=== PATIENT | male | born 1970 | race Caucasian/White ===

== ENCOUNTER → 2016-06-20 | Outpatient (CLI) | payer BC | LOC: HYPER 06:56 | DX: T81.89XA Other complications of procedures, not elsewhere classified, initial encounter (principal); E11.621 Type 2 diabetes mellitus with foot ulcer; L97.511 Non-pressure chronic ulcer of other part of right foot limited to breakdown of skin; E11.43 Type 2 diabetes mellitus with diabetic autonomic (poly)neuropathy; E11.69 Type 2 diabetes mellitus with other specified complication; M86.271 Subacute osteomyelitis, right ankle and foot; Y83.8 Other surgical procedures as the cause of abnormal reaction of the patient, or of later complication, without mention of misadventure at the time of the procedure ==

== ENCOUNTER → 2016-09-22 | Outpatient (CLI) | payer BC | LOC: HYPER 09-06 10:27 | DX: T81.89XA Other complications of procedures, not elsewhere classified, initial encounter (principal); E11.621 Type 2 diabetes mellitus with foot ulcer; L97.511 Non-pressure chronic ulcer of other part of right foot limited to breakdown of skin; E11.69 Type 2 diabetes mellitus with other specified complication; M86.271 Subacute osteomyelitis, right ankle and foot; K21.9 Gastro-esophageal reflux disease without esophagitis; E11.40 Type 2 diabetes mellitus with diabetic neuropathy, unspecified; M19.90 Unspecified osteoarthritis, unspecified site; F17.210 Nicotine dependence, cigarettes, uncomplicated; F15.90 Other stimulant use, unspecified, uncomplicated; Z86.718 Personal history of other venous thrombosis and embolism; Z89.412 Acquired absence of left great toe; Z89.411 Acquired absence of right great toe; Y83.8 Other surgical procedures as the cause of abnormal reaction of the patient, or of later complication, without mention of misadventure at the time of the procedure ==

== ENCOUNTER → 2016-12-26 | Outpatient (CLI) | payer BC | LOC: HYPER 12-13 07:11 | DX: T81.89XD Other complications of procedures, not elsewhere classified, subsequent encounter (principal); E11.621 Type 2 diabetes mellitus with foot ulcer; L97.521 Non-pressure chronic ulcer of other part of left foot limited to breakdown of skin; L97.512 Non-pressure chronic ulcer of other part of right foot with fat layer exposed; E11.43 Type 2 diabetes mellitus with diabetic autonomic (poly)neuropathy; E11.69 Type 2 diabetes mellitus with other specified complication; M86.271 Subacute osteomyelitis, right ankle and foot; K21.9 Gastro-esophageal reflux disease without esophagitis; I10 Essential (primary) hypertension; E11.40 Type 2 diabetes mellitus with diabetic neuropathy, unspecified; Z86.718 Personal history of other venous thrombosis and embolism; M19.90 Unspecified osteoarthritis, unspecified site; Z89.412 Acquired absence of left great toe; Z89.411 Acquired absence of right great toe; Z89.421 Acquired absence of other right toe(s); Y83.8 Other surgical procedures as the cause of abnormal reaction of the patient, or of later complication, without mention of misadventure at the time of the procedure ==

== ENCOUNTER → 2017-01-04 | Outpatient (CLI) | payer BC | LOC: HYPER 11:45 | DX: T87.89 Other complications of amputation stump (principal); E11.621 Type 2 diabetes mellitus with foot ulcer; L97.512 Non-pressure chronic ulcer of other part of right foot with fat layer exposed; L97.521 Non-pressure chronic ulcer of other part of left foot limited to breakdown of skin; E11.43 Type 2 diabetes mellitus with diabetic autonomic (poly)neuropathy; E11.69 Type 2 diabetes mellitus with other specified complication; M86.271 Subacute osteomyelitis, right ankle and foot; K21.9 Gastro-esophageal reflux disease without esophagitis; I10 Essential (primary) hypertension; M19.90 Unspecified osteoarthritis, unspecified site; F17.210 Nicotine dependence, cigarettes, uncomplicated; Z89.412 Acquired absence of left great toe; Z86.718 Personal history of other venous thrombosis and embolism; Z89.411 Acquired absence of right great toe; Y83.5 Amputation of limb(s) as the cause of abnormal reaction of the patient, or of later complication, without mention of misadventure at the time of the procedure ==

== ENCOUNTER → 2017-01-11 | Outpatient (CLI) | payer BC | LOC: HYPER 06:51 | DX: T87.89 Other complications of amputation stump (principal); E11.43 Type 2 diabetes mellitus with diabetic autonomic (poly)neuropathy; E11.621 Type 2 diabetes mellitus with foot ulcer; L97.512 Non-pressure chronic ulcer of other part of right foot with fat layer exposed; L97.521 Non-pressure chronic ulcer of other part of left foot limited to breakdown of skin; E11.69 Type 2 diabetes mellitus with other specified complication; M86.271 Subacute osteomyelitis, right ankle and foot; K21.9 Gastro-esophageal reflux disease without esophagitis; I10 Essential (primary) hypertension; M19.90 Unspecified osteoarthritis, unspecified site; F17.210 Nicotine dependence, cigarettes, uncomplicated; Z89.412 Acquired absence of left great toe; Z86.718 Personal history of other venous thrombosis and embolism; Z89.411 Acquired absence of right great toe; Y83.5 Amputation of limb(s) as the cause of abnormal reaction of the patient, or of later complication, without mention of misadventure at the time of the procedure ==

== ENCOUNTER → 2017-01-25 | Outpatient (CLI) | payer BC | LOC: HYPER 06:54 | DX: T81.89XD Other complications of procedures, not elsewhere classified, subsequent encounter (principal); E11.621 Type 2 diabetes mellitus with foot ulcer; L97.512 Non-pressure chronic ulcer of other part of right foot with fat layer exposed; E11.43 Type 2 diabetes mellitus with diabetic autonomic (poly)neuropathy; E11.69 Type 2 diabetes mellitus with other specified complication; M86.271 Subacute osteomyelitis, right ankle and foot; K21.9 Gastro-esophageal reflux disease without esophagitis; E11.40 Type 2 diabetes mellitus with diabetic neuropathy, unspecified; M19.90 Unspecified osteoarthritis, unspecified site; F17.210 Nicotine dependence, cigarettes, uncomplicated; Z86.718 Personal history of other venous thrombosis and embolism; Z89.421 Acquired absence of other right toe(s); Y83.8 Other surgical procedures as the cause of abnormal reaction of the patient, or of later complication, without mention of misadventure at the time of the procedure ==

== ENCOUNTER → 2017-02-01 | Outpatient (CLI) | payer BC | LOC: HYPER 06:42 | DX: T81.89XD Other complications of procedures, not elsewhere classified, subsequent encounter (principal); E11.621 Type 2 diabetes mellitus with foot ulcer; L97.512 Non-pressure chronic ulcer of other part of right foot with fat layer exposed; E11.69 Type 2 diabetes mellitus with other specified complication; M86.271 Subacute osteomyelitis, right ankle and foot; Z89.421 Acquired absence of other right toe(s); E11.43 Type 2 diabetes mellitus with diabetic autonomic (poly)neuropathy; K21.9 Gastro-esophageal reflux disease without esophagitis; I10 Essential (primary) hypertension; E11.40 Type 2 diabetes mellitus with diabetic neuropathy, unspecified; Z86.718 Personal history of other venous thrombosis and embolism; M19.90 Unspecified osteoarthritis, unspecified site; F17.210 Nicotine dependence, cigarettes, uncomplicated; Y83.8 Other surgical procedures as the cause of abnormal reaction of the patient, or of later complication, without mention of misadventure at the time of the procedure ==

== ENCOUNTER → 2017-02-03 | Outpatient (CLI) | payer BC | LOC: HYPER 07:47 | DX: T81.89XD Other complications of procedures, not elsewhere classified, subsequent encounter (principal); E11.621 Type 2 diabetes mellitus with foot ulcer; L97.512 Non-pressure chronic ulcer of other part of right foot with fat layer exposed; E11.69 Type 2 diabetes mellitus with other specified complication; M86.271 Subacute osteomyelitis, right ankle and foot; E11.43 Type 2 diabetes mellitus with diabetic autonomic (poly)neuropathy; K21.9 Gastro-esophageal reflux disease without esophagitis; I10 Essential (primary) hypertension; Z86.718 Personal history of other venous thrombosis and embolism; F17.210 Nicotine dependence, cigarettes, uncomplicated; Y83.8 Other surgical procedures as the cause of abnormal reaction of the patient, or of later complication, without mention of misadventure at the time of the procedure ==

== ENCOUNTER → 2017-02-09 | Outpatient (CLI) | payer BC | LOC: HYPER 07:02 | DX: T81.89XD Other complications of procedures, not elsewhere classified, subsequent encounter (principal); E11.621 Type 2 diabetes mellitus with foot ulcer; L97.512 Non-pressure chronic ulcer of other part of right foot with fat layer exposed; E11.43 Type 2 diabetes mellitus with diabetic autonomic (poly)neuropathy; E11.69 Type 2 diabetes mellitus with other specified complication; M86.271 Subacute osteomyelitis, right ankle and foot; K21.9 Gastro-esophageal reflux disease without esophagitis; E11.40 Type 2 diabetes mellitus with diabetic neuropathy, unspecified; M19.90 Unspecified osteoarthritis, unspecified site; F17.210 Nicotine dependence, cigarettes, uncomplicated; Z86.718 Personal history of other venous thrombosis and embolism; Z89.412 Acquired absence of left great toe; Z89.411 Acquired absence of right great toe; Y83.8 Other surgical procedures as the cause of abnormal reaction of the patient, or of later complication, without mention of misadventure at the time of the procedure ==

== ENCOUNTER → 2017-02-16 | Outpatient (CLI) | payer BC | LOC: HYPER 07:11 | DX: T81.89XD Other complications of procedures, not elsewhere classified, subsequent encounter (principal); E11.621 Type 2 diabetes mellitus with foot ulcer; L97.512 Non-pressure chronic ulcer of other part of right foot with fat layer exposed; E11.69 Type 2 diabetes mellitus with other specified complication; M86.271 Subacute osteomyelitis, right ankle and foot; E11.43 Type 2 diabetes mellitus with diabetic autonomic (poly)neuropathy; K21.9 Gastro-esophageal reflux disease without esophagitis; E11.40 Type 2 diabetes mellitus with diabetic neuropathy, unspecified; M19.90 Unspecified osteoarthritis, unspecified site; F17.210 Nicotine dependence, cigarettes, uncomplicated; Z86.718 Personal history of other venous thrombosis and embolism; Z89.412 Acquired absence of left great toe; Z89.411 Acquired absence of right great toe; Y83.8 Other surgical procedures as the cause of abnormal reaction of the patient, or of later complication, without mention of misadventure at the time of the procedure ==

== ENCOUNTER → 2017-02-22 | Outpatient (CLI) | payer BC | LOC: HYPER 07:00 | DX: T87.89 Other complications of amputation stump (principal); E11.621 Type 2 diabetes mellitus with foot ulcer; L97.512 Non-pressure chronic ulcer of other part of right foot with fat layer exposed; E11.43 Type 2 diabetes mellitus with diabetic autonomic (poly)neuropathy; E11.69 Type 2 diabetes mellitus with other specified complication; M86.271 Subacute osteomyelitis, right ankle and foot; K21.9 Gastro-esophageal reflux disease without esophagitis; I10 Essential (primary) hypertension; M19.90 Unspecified osteoarthritis, unspecified site; F17.210 Nicotine dependence, cigarettes, uncomplicated; Z89.412 Acquired absence of left great toe; Z86.718 Personal history of other venous thrombosis and embolism; Z89.411 Acquired absence of right great toe; Y83.5 Amputation of limb(s) as the cause of abnormal reaction of the patient, or of later complication, without mention of misadventure at the time of the procedure ==

== ENCOUNTER 2017-03-04 13:02 | Emergency (ER) | payer BC ==
[~2017-03-04] VITALS: Ht 203.2 cm; Wt 133.4 kg
--- NOTE | ~2017-03-04 | HC ---
[facility] [address] [place] [address] CONSULTATION Name: LARISA SILVA Room #: DEP Jennifer#: [id number] Admission: 03/04/17 Attend Phys: Discharge: 03/04/17 Date of : 70 Report #: [id number] THIS REPORT FOR: //name// CC: Amy GARCIA DATE OF SERVICE: 03/04/2017 REASON FOR CONSULTATION: Chronic diabetic foot ulcers Chronic diabetic foot ulcers of right foot with increased redness and swelling. DICTATION ENDS HERE <ELECTRONICALLY SIGNED> By: Yvan Willis MD 03/05/17 1935 [id number] Yvan Willis MD /nt
--- NOTE | ~2017-03-04 | HC ---
[facility] [place] [address] CONSULTATION Name: RICARDOLARISA Eric Room #: DEP Jennifer#: [id number] Admission: 03/04/17 Attend Phys: Discharge: 03/04/17 Date of : 70 Report #: [id number] THIS REPORT FOR: //name// CC: Amy GARCIA DATE OF SERVICE: 03/04/2017 EMERGENCY ROOM CONSULTATION NOTE REASON FOR CONSULTATION: Diabetic foot ulcers of right foot with increased swelling, redness and drainage. HISTORY OF PRESENT ILLNESS: The patient is a 46-year-old gentleman suffering with severe diabetic ulcers of the right foot since approximately 03/2016. He is a wound care patient of Dr. Natanael Hankins at [facility]. He has had some toes previously amputated and he has been treated for chronic ulcers of the plantar surface of the foot and the lateral surface of the foot. The wounds have been challenging to treat. Wounds had previously been treated with skin substitutes such as EndoForm and Primatrix. The patient recently had some evidence of infection in the foot and was treated with oral antibiotics. However, the patient felt that the foot was now worse, with increased swelling, increased redness and increased draining. He was concerned. Previous recommendation had been giving to the patient that he undergo a transmetatarsal amputation of the right foot. The patient had had previously toes amputated and there are bony changes on the foot with suspicion of osteomyelitis. The patient now presents himself to the Emergency Room because of increased swelling, increased redness and increased drainage. He has been ambulating on the foot. The patient wants to get antibiotics, but he states that he cannot stay and be hospitalized today. He would want to get antibiotics and be sent home to return on the following day, although it is recommended that he be admitted for continued IV antibiotics. PAST MEDICAL HISTORY: 1. History of diabetic ulcers of the right foot. 2. Previous toe amputations to the right foot. 3. History of pulmonary embolism. 4. Diabetes mellitus type 2 with peripheral neuropathy. SOCIAL HISTORY: Noncontributory. FAMILY HISTORY: Noncontributory. MEDICATIONS: The patient has been taking oral antibiotics. PHYSICAL EXAMINATION: [facility] [address] [place] [address] CONSULTATION Name: LARISA SILVA Room #: DEP [facility]#: [id number] Admission: 03/04/17 Attend Phys: Discharge: 03/04/17 Date of : 70 Report #: [id number] GENERAL: Shows a 46-year-old male who appears slightly ill. HEENT: Mucous membranes are moist. RESPIRATORY: Unlabored. ABDOMEN: Soft. EXTREMITIES: Examination of the extremities shows deformities of the right foot with previous toe amputations. There is a large ulcer of the lateral foot at previous amputation site. The dorsum of the foot is swollen and red to the mid foot. There is some drainage and superficial necrotic tissue on the lateral ulcer of the foot and appears infected. There is also a plantar ulcer of the foot with some drainage that also appears infected. LABORATORY DATA: Laboratories pending. IMPRESSION: Chronic diabetic foot ulcers of the right foot, with suspicion of osteomyelitis and increased evidence of infection with cellulitis. PLAN: I am recommending the patient that he be admitted to the hospital for IV antibiotics. This should be considered for limb salvage as he is at threat for needing bony amputation. Transmetatarsal amputation at least may be needed. It is necessary for the patient to be admitted for IV antibiotics; however, he will not permit this. For this reason, Emergency Room physician will give him a dose of intravenous Zosyn and vancomycin. I am against our advice that the patient will leave the hospital. He promises to call tomorrow to be admitted to the hospital for IV antibiotics, but will not stay today. <ELECTRONICALLY SIGNED> By: Yvan Willis MD 03/05/17 1934 [id number] Yvan Willis MD /nt
[2017-03-04 13:59] LABS: ABSOLUTE NEUTROPHILS 5.7 thou/uL (1.4-8.2); BASOPHILS 0.7 % (0.0-2.0); HEMATOCRIT 42.1 % (42.0-52.0); HEMOGLOBIN 14.3 gm/dL (14.0-18.0); LYMPHOCYTES 10.7 % (24.0-44.0); MCHC 33.9 g/dL (28.0-37.0); MCV 82.5 fL (80.0-100.0); MONOCYTES 8.2 % (1.0-8.0); PLATELET COUNT 288 thou/uL (150-400); POLYS 79.4 % (36.0-66.0); RBC 5.11 mil/uL (4.50-6.00); RDW 15.1 % (10.5-14.5); WBC 7.1 thou/uL (4.0-11.0)
[2017-03-04 14:02] LABS: MANUAL DIFF NO
[2017-03-04 14:08] LABS: CALCIUM 9.3 mg/dL (8.5-10.1); POTASSIUM 4.2 mmol/L (3.5-5.1)
[2017-03-04 14:14] LABS: ALBUMIN 3.3 g/dL (3.4-5.0); TOTAL BILIRUBIN 0.7 mg/dL (<0.1-1.0)
[2017-03-04] MEDS ORDERED: PENICILLIN V P500 MG PO (14:37)
[2017-03-04] MEDS ORDERED: PIOGLITAZONE15 MG (14:38)
[2017-03-04] MEDS ORDERED: JANUVIA100 MG PO (14:38)
[2017-03-04] MEDS ORDERED: XARELTO20 MG PO (14:38)
[2017-03-04] MEDS ORDERED: SILDENAFIL20 MG PO (14:38)
[2017-03-04] MEDS ORDERED: ATORVASTATIN CA40 MG PO (14:38)
[2017-03-04] MEDS ORDERED: OMEPRAZOLE 20 M20 M1 PO (14:39)
[2017-03-04 15:10] LABS: URINE BILIRUBIN NEGATIVE (Negative); URINE BLOOD NEGATIVE (Negative); URINE COLOR YELLOW; URINE GLUCOSE-RANDOM* 3+ (Negative); URINE KETONES TRACE (Negative); URINE NITRITE NEGATIVE (Negative); URINE PROTEIN (DIPSTICK) NEGATIVE (Negative); URINE SPECIFIC GRAVITY <= 1.005 (1.003-1.035); URINE UROBILINOGEN 0.2 E.U./dl (0.2-1.0)
[2017-03-04 18:06] VITALS: BP 101/43
== END 2017-03-04 18:10 | disposition left against medical advice (07) ==
LOC: ER 13:02
PROVIDERS: Emergency Medicine
DX: L08.89 Other specified local infections of the skin and subcutaneous tissue (principal); E11.9 Type 2 diabetes mellitus without complications; E11.40 Type 2 diabetes mellitus with diabetic neuropathy, unspecified; Z86.718 Personal history of other venous thrombosis and embolism; Z88.5 Allergy status to narcotic agent

== ENCOUNTER 2017-03-05 11:00 | Inpatient (IN) | payer BC ==
[~2017-03-05] VITALS: Ht 203.2 cm; Wt 133.5 kg
--- NOTE | ~2017-03-05 | HC ---
[facility] [place] [address] CONSULTATION Name: RICARDOLARISA Eric Room #: 431-P [facility] IN M.R.#: [id number] Admission: 03/05/17 Attend Phys: Riley Castillo MD Discharge: 03/06/17 Date of : 70 Report #: [id number] THIS REPORT FOR: //name// CC: Riley GARCIA DATE OF SERVICE: 03/05/2017 REASON FOR CONSULTATION: Diabetic foot infection of right foot, worsening. HISTORY OF PRESENT ILLNESS: The patient is a 46-year-old gentleman with a history of diabetes mellitus type 2 and diabetic ulcer of the right foot, well known to Dr. Natanael Hankins at [facility] since approximately 03/2016. This patient has diabetic neuropathy. He has a history of deep vein thrombosis and pulmonary embolism and is on Xarelto. He has had previous amputation of a part of the left great toe and the left second and third toe. He has had previous amputation of the right great toe and ray amputation of right fifth toe. He has been seeing Dr. Hankins at [facility] for nonhealing diabetic ulcers of the foot. The patient did call this weekend stating the foot was more red and more swollen with increased malodorous drainage. He presented himself to the Emergency Room yesterday and would not allow himself to be admitted, but got an intravenous dose of vancomycin and Zosyn. He agreed to represent to the hospital today for admission. The patient has been informed that his diabetic foot ulcers could eventually lead to the need for a below-knee amputation or transmetatarsal amputation. The patient is hoping for a transmetatarsal amputation at the most. Recognizing his foot is more red and swollen with increased drainage and foul odor he had himself admitted back to the hospital today. He has been afebrile. Of note in the [facility], his ulcers have chronically failed to heal with the application of skin substitute such as Primatrix. There is suspicion of possible osteomyelitis. PAST MEDICAL HISTORY: 1. Longstanding diabetes mellitus, poorly controlled. Recent hemoglobin A1c 12.4. 2. Hypertension. 3. History of multiple deep vein thrombosis on the right and left. 4. History of pulmonary embolism 2015. 5. History of 3 toe amputations on the left side, right foot fifth toe ray amputation, and great toe amputation. 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 No drug or alcohol abuse. FAMILY HISTORY: [place] [address] CONSULTATION Name: LARISA SILVA Room #: 431-P [facility] IN M.R.#: [id number] Admission: 03/05/17 Attend Phys: Riley Castillo MD Discharge: 03/06/17 Date of : 70 Report #: [id number] MEDICATIONS: Include Xarelto, omeprazole, Acticoat, and sitagliptin. The patient recently been on oral antibiotics for the foot. REVIEW OF SYSTEMS: Noncontributory. PHYSICAL EXAMINATION: GENERAL: Shows a chronically ill-appearing 46-year-old gentleman. VITAL SIGNS: He is afebrile, temperature is 36.8, and he is alert and oriented. LUNGS: Respirations are unlabored. ABDOMEN: Obese. EXTREMITIES: Shows partial amputation of the left great toe, and amputation of the second and third toes. Examination of the right foot shows the previous amputation of the right great toe and open ray amputation of the right fifth toe. There is some swelling on the dorsum of the foot and some erythema to the mid foot. There is a foul odor coming from the open wounds. There is a large open ulcer on the lateral foot at the site of the fifth toe ray amputation site with open wound measuring approximately 4.5 x 3 cm with adherent foul smelling exudate at the base and some drainage. On the plantar aspect of the foot, near the second metatarsal head, there is an ulcer with some foul drainage. Cultures were taken yesterday. LABORATORY DATA: White blood count 7.2, hemoglobin 15.3, hematocrit 44.7, creatinine 1.1. On 03/04/2017 x-ray of the right foot shows ill-definition of the cortex of bone at the base of the proximal phalanx of the fourth toe on the right. This could represent possible osteomyelitis. X-ray notes surgical amputation of the fourth and fifth metatarsals. MRI was recommended. IMPRESSION: Chronic non-healing diabetic ulcers of the right foot with open wound of the right foot, status post right fifth toe ray amputation. Signs and symptoms of infection with swelling, redness, foul drainage, culture is pending. PLAN: IV antibiotics, we will switch to full-strength Dakin's dressings to the foot, MRI is ordered. Check wound cultures and consult ID. The patient will be seen by his orthopedic surgeon. Knows that a transmetatarsal amputation may be a possibility and our goal is limb salvage. Dr. Hankins will see him tomorrow. By: 2020 014 Yvan Willis MD /nt
--- NOTE | ~2017-03-05 | H ---
[facility] [place] [address] HISTORY AND PHYSICAL Name: LARISA SILVA Room #: 170-3 ADM IN M.R.#: [id number] Admission: 03/05/17 Attend Phys: Riley Castillo MD Discharge: Date of : 70 Report #: [id number] THIS REPORT FOR: //name// CC: Riley GARCIA DATE OF SERVICE: 03/05/2017 DATE OF SERVICE: 03/05/2017 REASON FOR ADMISSION: Diabetic right foot. REASON FOR PRESENTATION: Ulcer. HISTORY OF PRESENT ILLNESS: A 46-year-old with past medical history of diabetes mellitus, hypertension. Unfortunately his diabetes has been out of control with the most recent hemoglobin A1c of 12.4. He had been followed by wound care team. He suffered from diabetic foot for the last couple of years and ended up with an amputation in February 2016 of the lateral 2 digits. He called his wound care because of increasing drainage, redness in the right foot. They advised him to come to the emergency room. He came yesterday and had some antibiotic and decided to leave for work-related issues. He came back for further evaluation and management. He denies any fever or chills. He is known to have diabetes mellitus, hypertension, pulmonary embolism. He has required some amputations in the past. No inciting trauma. PAST MEDICAL HISTORY: 1. Diabetes mellitus, longstanding with poor control. 2. Hypertension. 3. Multiple DVTs, one on the left side in 1999, one on the right side in 2004. 4. Pulmonary embolism in 2016. 5. Diabetic foot. 6. Amputations of 2 toes on the left side. 7. Right foot sole ulcer. 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 No drug or alcohol abuse. FAMILY HISTORY: Significant for the following: Mom has hypertension and dad was with renal cancer. MEDICATIONS: 1. Sitagliptin. 2. Xarelto. 3. Omeprazole. 4. Actos. [address] [address] HISTORY AND PHYSICAL Name: LARISA SILVA Room #: 170-3 ADM IN [facility]#: [id number] Admission: 03/05/17 Attend Phys: Riley Castillo MD Discharge: Date of : 70 Report #: [id number] ALLERGIES: CODEINE. REVIEW OF SYSTEMS: CONSTITUTIONAL: No fever or chills. PULMONARY: No cough or hemoptysis. GASTROINTESTINAL: No nausea or vomiting. CARDIOVASCULAR: No chest pain or palpitation. GENITOURINARY: No frequency, no urgency. MUSCULOSKELETAL: As per the history of present illness. SKIN: As per the history of present illness. NEUROLOGIC: No weakness, no loss of consciousness. PHYSICAL EXAMINATION: GENERAL: He is alert, oriented, in no apparent distress. VITAL SIGNS: Pulse rate 99, blood pressure 150/100. Temperature 36.8, respiratory rate 18. GENERAL: Alert, oriented, in no apparent distress. HEAD AND NECK: No jugular venous distention, no bruit, no thyromegaly. CHEST: Clear to auscultation bilaterally. CARDIOVASCULAR: Regular with no rub detected. ABDOMEN: Soft, nontender with no hepatosplenomegaly. EXTREMITIES: Missing digits on the right side with partial amputation of the lateral aspect of the right foot. This is associated with erythema of the dorsum of the foot. There is foul smelling drainage. There is an ulcer on the plantar aspect of the forefoot. LABORATORY VALUES: Reviewed. White blood cell count 7.2. Chemistry revealed hyponatremia with a sodium of 131. Blood sugar is elevated at 378. Urine was trace ketones and +3 glucose. RADIOLOGIC IMAGING: X-ray of the foot revealed an ill-defined cortex of the bone at the base of the proximal phalanx the 4th toe, which could represent osteomyelitis. ASSESSMENT, IMPRESSION AND PLAN: 1. Right diabetic foot wound cellulitis. 2. Concerning osteomyelitis. 3. Diabetes mellitus. 4. Hypertension. 5. Noncompliance. 6. Admission. 7. MRI of the right foot. 8. Wound care. 9. Initiate antibiotic. 10. Blood pressure control. [address] [address] HISTORY AND PHYSICAL Name: LARISA SILVA Room #: 170-3 ADM IN M.R.#: [id number] Admission: 03/05/17 Attend Phys: Riley Castillo MD Discharge: Date of : 70 Report #: [id number] 11. Blood sugar control. 12. If MRI shows evidence of osteomyelitis, we will have Orthopedic involved in his care. By: [id number] [id number] Riley Castillo MD /nt
[2017-03-05 11:00] VITALS: BP 151/101
[~2017-03-05 11:00] MED LIST: ATORVASTATIN CA40 MG PO; JANUVIA100 MG PO; OMEPRAZOLE 20 M20 M1 PO; PENICILLIN V P500 MG PO; PIOGLITAZONE15 MG; SILDENAFIL20 MG PO; XARELTO20 MG PO
[2017-03-05 11:50] LABS: ABSOLUTE NEUTROPHILS 4.8 thou/uL (1.4-8.2); BASOPHILS 0.7 % (0.0-2.0); EOSINOPHILS 1.9 % (0.0-3.0); HEMATOCRIT 44.7 % (42.0-52.0); HEMOGLOBIN 15.3 gm/dL (14.0-18.0); LYMPHOCYTES 18.4 % (24.0-44.0); MANUAL DIFF NO; MCH 28.1 pg (26.0-34.0); MCHC 34.2 g/dL (28.0-37.0); MCV 82.1 fL (80.0-100.0); PLATELET COUNT 315 thou/uL (150-400); RBC 5.45 mil/uL (4.50-6.00); RDW 15.3 % (10.5-14.5); WBC 7.2 thou/uL (4.0-11.0)
[2017-03-05 11:53] LABS: CALCIUM 9.7 mg/dL (8.5-10.1); CREATININE 1.1 mg/dL (0.7-1.3); POTASSIUM 4.3 mmol/L (3.5-5.1)
[2017-03-05 13:27] VITALS: BP 139/87
[2017-03-05 14:16] VITALS: BP 139/87
[2017-03-05 14:40] VITALS: BP 136/72
[2017-03-05 20:00] VITALS: BP 139/75
[2017-03-06 05:30] VITALS: BP 128/74
[2017-03-06 08:00] VITALS: BP 129/79
== END 2017-03-06 10:55 | disposition left against medical advice (07) | DRG 638 ==
LOC: ER 11:00 → 4E 12:03 → EROBS 12:03 → 4E 14:13
PROVIDERS: Emergency Medicine
DX: E11.621 Type 2 diabetes mellitus with foot ulcer (principal); L03.115 Cellulitis of right lower limb; M86.8X7 Other osteomyelitis, ankle and foot; E11.69 Type 2 diabetes mellitus with other specified complication; F17.210 Nicotine dependence, cigarettes, uncomplicated; E11.65 Type 2 diabetes mellitus with hyperglycemia; I10 Essential (primary) hypertension; L97.519 Non-pressure chronic ulcer of other part of right foot with unspecified severity; E11.51 Type 2 diabetes mellitus with diabetic peripheral angiopathy without gangrene; Z53.21 Procedure and treatment not carried out due to patient leaving prior to being seen by health care provider; Z86.718 Personal history of other venous thrombosis and embolism; Z86.711 Personal history of pulmonary embolism; Z88.6 Allergy status to analgesic agent; Z79.899 Other long term (current) drug therapy; Z79.01 Long term (current) use of anticoagulants; Z89.412 Acquired absence of left great toe; Z89.411 Acquired absence of right great toe; Z82.49 Family history of ischemic heart disease and other diseases of the circulatory system; Z91.19 Patient's noncompliance with other medical treatment and regimen
CPT/HCPCS: 10783

== ENCOUNTER → 2017-04-18 | Outpatient (CLI) | payer BC | LOC: HYPER 03-08 15:38 | DX: T81.89XD Other complications of procedures, not elsewhere classified, subsequent encounter (principal); E11.621 Type 2 diabetes mellitus with foot ulcer; L97.512 Non-pressure chronic ulcer of other part of right foot with fat layer exposed; E11.43 Type 2 diabetes mellitus with diabetic autonomic (poly)neuropathy; E11.69 Type 2 diabetes mellitus with other specified complication; M86.271 Subacute osteomyelitis, right ankle and foot; I10 Essential (primary) hypertension; M19.90 Unspecified osteoarthritis, unspecified site; K21.9 Gastro-esophageal reflux disease without esophagitis; F17.210 Nicotine dependence, cigarettes, uncomplicated; Z89.412 Acquired absence of left great toe; Z86.718 Personal history of other venous thrombosis and embolism; Z89.411 Acquired absence of right great toe; Z89.421 Acquired absence of other right toe(s); Y83.8 Other surgical procedures as the cause of abnormal reaction of the patient, or of later complication, without mention of misadventure at the time of the procedure ==

== ENCOUNTER → 2017-05-11 | Outpatient (CLI) | payer BC | LOC: HYPER 06:26 | DX: T81.89XD Other complications of procedures, not elsewhere classified, subsequent encounter (principal); E11.621 Type 2 diabetes mellitus with foot ulcer; L97.512 Non-pressure chronic ulcer of other part of right foot with fat layer exposed; E11.43 Type 2 diabetes mellitus with diabetic autonomic (poly)neuropathy; E11.69 Type 2 diabetes mellitus with other specified complication; M86.271 Subacute osteomyelitis, right ankle and foot; I10 Essential (primary) hypertension; L84 Corns and callosities; M19.90 Unspecified osteoarthritis, unspecified site; K21.9 Gastro-esophageal reflux disease without esophagitis; F17.210 Nicotine dependence, cigarettes, uncomplicated; Z89.421 Acquired absence of other right toe(s); Z86.718 Personal history of other venous thrombosis and embolism; Z89.412 Acquired absence of left great toe; Z89.411 Acquired absence of right great toe; Y83.8 Other surgical procedures as the cause of abnormal reaction of the patient, or of later complication, without mention of misadventure at the time of the procedure ==

== ENCOUNTER → 2017-06-05 | Outpatient (CLI) | payer BC | LOC: HYPER 05-25 06:44 | DX: T87.89 Other complications of amputation stump (principal); L89.893 Pressure ulcer of other site, stage 3; E11.621 Type 2 diabetes mellitus with foot ulcer; L97.512 Non-pressure chronic ulcer of other part of right foot with fat layer exposed; E11.43 Type 2 diabetes mellitus with diabetic autonomic (poly)neuropathy; E11.69 Type 2 diabetes mellitus with other specified complication; M86.271 Subacute osteomyelitis, right ankle and foot; K21.9 Gastro-esophageal reflux disease without esophagitis; I10 Essential (primary) hypertension; E11.40 Type 2 diabetes mellitus with diabetic neuropathy, unspecified; M19.90 Unspecified osteoarthritis, unspecified site; F17.210 Nicotine dependence, cigarettes, uncomplicated; Z89.411 Acquired absence of right great toe; Z89.412 Acquired absence of left great toe; Z86.718 Personal history of other venous thrombosis and embolism; Y83.5 Amputation of limb(s) as the cause of abnormal reaction of the patient, or of later complication, without mention of misadventure at the time of the procedure ==

== ENCOUNTER → 2017-06-19 | Outpatient (CLI) | payer BC | LOC: HYPER 06-13 09:41 | DX: T81.89XD Other complications of procedures, not elsewhere classified, subsequent encounter (principal); E11.621 Type 2 diabetes mellitus with foot ulcer; L97.512 Non-pressure chronic ulcer of other part of right foot with fat layer exposed; L89.893 Pressure ulcer of other site, stage 3; E11.69 Type 2 diabetes mellitus with other specified complication; M86.271 Subacute osteomyelitis, right ankle and foot; E11.43 Type 2 diabetes mellitus with diabetic autonomic (poly)neuropathy; K21.9 Gastro-esophageal reflux disease without esophagitis; L84 Corns and callosities; I10 Essential (primary) hypertension; M19.90 Unspecified osteoarthritis, unspecified site; F17.210 Nicotine dependence, cigarettes, uncomplicated; Z86.718 Personal history of other venous thrombosis and embolism; Z89.412 Acquired absence of left great toe; Z89.411 Acquired absence of right great toe; Y83.8 Other surgical procedures as the cause of abnormal reaction of the patient, or of later complication, without mention of misadventure at the time of the procedure ==

== ENCOUNTER → 2017-06-26 | Outpatient (CLI) | payer BC | LOC: HYPER 06:49 | DX: T81.89XD Other complications of procedures, not elsewhere classified, subsequent encounter (principal); E11.621 Type 2 diabetes mellitus with foot ulcer; L97.512 Non-pressure chronic ulcer of other part of right foot with fat layer exposed; E11.43 Type 2 diabetes mellitus with diabetic autonomic (poly)neuropathy; E11.51 Type 2 diabetes mellitus with diabetic peripheral angiopathy without gangrene; M86.271 Subacute osteomyelitis, right ankle and foot; K21.9 Gastro-esophageal reflux disease without esophagitis; E11.40 Type 2 diabetes mellitus with diabetic neuropathy, unspecified; M19.90 Unspecified osteoarthritis, unspecified site; F17.210 Nicotine dependence, cigarettes, uncomplicated; Z86.718 Personal history of other venous thrombosis and embolism; Z89.422 Acquired absence of other left toe(s); Z89.421 Acquired absence of other right toe(s); Y83.8 Other surgical procedures as the cause of abnormal reaction of the patient, or of later complication, without mention of misadventure at the time of the procedure ==

== ENCOUNTER → 2017-07-27 | Outpatient (CLI) | payer BC | LOC: HYPER 07-17 06:54 | DX: T81.89XD Other complications of procedures, not elsewhere classified, subsequent encounter (principal); E11.621 Type 2 diabetes mellitus with foot ulcer; L97.512 Non-pressure chronic ulcer of other part of right foot with fat layer exposed; L89.893 Pressure ulcer of other site, stage 3; E11.43 Type 2 diabetes mellitus with diabetic autonomic (poly)neuropathy; E11.69 Type 2 diabetes mellitus with other specified complication; M86.271 Subacute osteomyelitis, right ankle and foot; I10 Essential (primary) hypertension; K21.9 Gastro-esophageal reflux disease without esophagitis; M19.90 Unspecified osteoarthritis, unspecified site; F17.210 Nicotine dependence, cigarettes, uncomplicated; Z89.412 Acquired absence of left great toe; Z89.411 Acquired absence of right great toe; Z89.421 Acquired absence of other right toe(s); Y83.8 Other surgical procedures as the cause of abnormal reaction of the patient, or of later complication, without mention of misadventure at the time of the procedure ==

== ENCOUNTER → 2017-08-10 | Outpatient (CLI) | payer BC | LOC: HYPER 07:03 | DX: T81.89XD Other complications of procedures, not elsewhere classified, subsequent encounter (principal); E11.621 Type 2 diabetes mellitus with foot ulcer; L97.512 Non-pressure chronic ulcer of other part of right foot with fat layer exposed; E11.43 Type 2 diabetes mellitus with diabetic autonomic (poly)neuropathy; E11.69 Type 2 diabetes mellitus with other specified complication; M86.271 Subacute osteomyelitis, right ankle and foot; K21.9 Gastro-esophageal reflux disease without esophagitis; E11.40 Type 2 diabetes mellitus with diabetic neuropathy, unspecified; M19.90 Unspecified osteoarthritis, unspecified site; Z86.718 Personal history of other venous thrombosis and embolism; Z89.412 Acquired absence of left great toe; Z89.411 Acquired absence of right great toe; F17.210 Nicotine dependence, cigarettes, uncomplicated; Y83.8 Other surgical procedures as the cause of abnormal reaction of the patient, or of later complication, without mention of misadventure at the time of the procedure ==

== ENCOUNTER → 2017-08-24 | Outpatient (CLI) | payer BC | LOC: HYPER 07:03 | DX: T81.89XD Other complications of procedures, not elsewhere classified, subsequent encounter (principal); E11.621 Type 2 diabetes mellitus with foot ulcer; L97.512 Non-pressure chronic ulcer of other part of right foot with fat layer exposed; E11.43 Type 2 diabetes mellitus with diabetic autonomic (poly)neuropathy; E11.69 Type 2 diabetes mellitus with other specified complication; M86.271 Subacute osteomyelitis, right ankle and foot; K21.9 Gastro-esophageal reflux disease without esophagitis; I10 Essential (primary) hypertension; F17.210 Nicotine dependence, cigarettes, uncomplicated; M19.90 Unspecified osteoarthritis, unspecified site; Z86.718 Personal history of other venous thrombosis and embolism; Z89.412 Acquired absence of left great toe; Z89.411 Acquired absence of right great toe; Y83.8 Other surgical procedures as the cause of abnormal reaction of the patient, or of later complication, without mention of misadventure at the time of the procedure ==

== ENCOUNTER → 2017-09-06 | Outpatient (CLI) | payer BC | LOC: HYPER 07:46 | DX: T81.89XD Other complications of procedures, not elsewhere classified, subsequent encounter (principal); E11.621 Type 2 diabetes mellitus with foot ulcer; L97.512 Non-pressure chronic ulcer of other part of right foot with fat layer exposed; E11.43 Type 2 diabetes mellitus with diabetic autonomic (poly)neuropathy; E11.69 Type 2 diabetes mellitus with other specified complication; M86.271 Subacute osteomyelitis, right ankle and foot; L84 Corns and callosities; I10 Essential (primary) hypertension; K21.9 Gastro-esophageal reflux disease without esophagitis; M19.90 Unspecified osteoarthritis, unspecified site; F17.210 Nicotine dependence, cigarettes, uncomplicated; Z86.718 Personal history of other venous thrombosis and embolism; Y83.8 Other surgical procedures as the cause of abnormal reaction of the patient, or of later complication, without mention of misadventure at the time of the procedure ==

== ENCOUNTER → 2017-09-14 | Outpatient (CLI) | payer BC | LOC: HYPER 06:40 | DX: T81.89XD Other complications of procedures, not elsewhere classified, subsequent encounter (principal); E11.621 Type 2 diabetes mellitus with foot ulcer; L97.512 Non-pressure chronic ulcer of other part of right foot with fat layer exposed; E11.42 Type 2 diabetes mellitus with diabetic polyneuropathy; E11.69 Type 2 diabetes mellitus with other specified complication; M86.271 Subacute osteomyelitis, right ankle and foot; L89.893 Pressure ulcer of other site, stage 3; K21.9 Gastro-esophageal reflux disease without esophagitis; M19.90 Unspecified osteoarthritis, unspecified site; F17.210 Nicotine dependence, cigarettes, uncomplicated; Z86.718 Personal history of other venous thrombosis and embolism; Z89.412 Acquired absence of left great toe; Z89.411 Acquired absence of right great toe; Y83.8 Other surgical procedures as the cause of abnormal reaction of the patient, or of later complication, without mention of misadventure at the time of the procedure ==

== ENCOUNTER → 2017-09-27 | Outpatient (CLI) | payer BC | LOC: HYPER 06:47 | DX: T81.89XD Other complications of procedures, not elsewhere classified, subsequent encounter (principal); E11.621 Type 2 diabetes mellitus with foot ulcer; L97.512 Non-pressure chronic ulcer of other part of right foot with fat layer exposed; L89.893 Pressure ulcer of other site, stage 3; E11.43 Type 2 diabetes mellitus with diabetic autonomic (poly)neuropathy; E11.69 Type 2 diabetes mellitus with other specified complication; M86.271 Subacute osteomyelitis, right ankle and foot; K21.9 Gastro-esophageal reflux disease without esophagitis; F17.210 Nicotine dependence, cigarettes, uncomplicated; M19.90 Unspecified osteoarthritis, unspecified site; Z79.4 Long term (current) use of insulin; Z79.84 Long term (current) use of oral hypoglycemic drugs; Z79.02 Long term (current) use of antithrombotics/antiplatelets; Z86.718 Personal history of other venous thrombosis and embolism; Z89.421 Acquired absence of other right toe(s); Z89.412 Acquired absence of left great toe; Z89.411 Acquired absence of right great toe; Y83.8 Other surgical procedures as the cause of abnormal reaction of the patient, or of later complication, without mention of misadventure at the time of the procedure ==

== ENCOUNTER → 2017-10-11 | Outpatient (CLI) | payer BC | LOC: HYPER 06:40 | DX: T81.89XD Other complications of procedures, not elsewhere classified, subsequent encounter (principal); E11.621 Type 2 diabetes mellitus with foot ulcer; L97.512 Non-pressure chronic ulcer of other part of right foot with fat layer exposed; E11.43 Type 2 diabetes mellitus with diabetic autonomic (poly)neuropathy; E11.69 Type 2 diabetes mellitus with other specified complication; M86.271 Subacute osteomyelitis, right ankle and foot; K21.9 Gastro-esophageal reflux disease without esophagitis; M19.90 Unspecified osteoarthritis, unspecified site; F17.210 Nicotine dependence, cigarettes, uncomplicated; Z79.84 Long term (current) use of oral hypoglycemic drugs; Z79.02 Long term (current) use of antithrombotics/antiplatelets; Z79.4 Long term (current) use of insulin; Z86.718 Personal history of other venous thrombosis and embolism; Z89.412 Acquired absence of left great toe; Z89.411 Acquired absence of right great toe; Y83.8 Other surgical procedures as the cause of abnormal reaction of the patient, or of later complication, without mention of misadventure at the time of the procedure ==

== ENCOUNTER → 2017-10-25 | Outpatient (CLI) | payer BC | LOC: HYPER 10-18 06:58 | DX: T81.89XD Other complications of procedures, not elsewhere classified, subsequent encounter (principal); E11.621 Type 2 diabetes mellitus with foot ulcer; L97.512 Non-pressure chronic ulcer of other part of right foot with fat layer exposed; E11.69 Type 2 diabetes mellitus with other specified complication; M86.271 Subacute osteomyelitis, right ankle and foot; E11.43 Type 2 diabetes mellitus with diabetic autonomic (poly)neuropathy; I10 Essential (primary) hypertension; L84 Corns and callosities; K21.9 Gastro-esophageal reflux disease without esophagitis; M19.90 Unspecified osteoarthritis, unspecified site; F17.210 Nicotine dependence, cigarettes, uncomplicated; Z86.718 Personal history of other venous thrombosis and embolism; Z89.411 Acquired absence of right great toe; Z89.421 Acquired absence of other right toe(s); Z89.412 Acquired absence of left great toe; Z79.4 Long term (current) use of insulin; Z79.02 Long term (current) use of antithrombotics/antiplatelets; Y83.8 Other surgical procedures as the cause of abnormal reaction of the patient, or of later complication, without mention of misadventure at the time of the procedure ==

== ENCOUNTER → 2017-11-24 | Outpatient (CLI) | payer BC | LOC: HYPER 07:31 | DX: T81.4XXD Infection following a procedure, subsequent encounter (principal); T81.89XD Other complications of procedures, not elsewhere classified, subsequent encounter; E11.621 Type 2 diabetes mellitus with foot ulcer; L97.512 Non-pressure chronic ulcer of other part of right foot with fat layer exposed; L89.893 Pressure ulcer of other site, stage 3; E11.43 Type 2 diabetes mellitus with diabetic autonomic (poly)neuropathy; E11.69 Type 2 diabetes mellitus with other specified complication; M86.271 Subacute osteomyelitis, right ankle and foot; I10 Essential (primary) hypertension; L84 Corns and callosities; K21.9 Gastro-esophageal reflux disease without esophagitis; M19.90 Unspecified osteoarthritis, unspecified site; F17.210 Nicotine dependence, cigarettes, uncomplicated; Z89.412 Acquired absence of left great toe; Z79.84 Long term (current) use of oral hypoglycemic drugs; Z79.02 Long term (current) use of antithrombotics/antiplatelets; Z79.4 Long term (current) use of insulin; Z86.718 Personal history of other venous thrombosis and embolism; Z89.411 Acquired absence of right great toe; Z89.421 Acquired absence of other right toe(s); Y83.8 Other surgical procedures as the cause of abnormal reaction of the patient, or of later complication, without mention of misadventure at the time of the procedure ==

== ENCOUNTER → 2017-12-05 | Outpatient (CLI) | payer BC | LOC: HYPER 09:14 | DX: T81.4XXD Infection following a procedure, subsequent encounter (principal); E11.621 Type 2 diabetes mellitus with foot ulcer; L97.512 Non-pressure chronic ulcer of other part of right foot with fat layer exposed; E11.43 Type 2 diabetes mellitus with diabetic autonomic (poly)neuropathy; E11.69 Type 2 diabetes mellitus with other specified complication; M86.271 Subacute osteomyelitis, right ankle and foot; L84 Corns and callosities; K21.9 Gastro-esophageal reflux disease without esophagitis; I10 Essential (primary) hypertension; M19.90 Unspecified osteoarthritis, unspecified site; F17.210 Nicotine dependence, cigarettes, uncomplicated; Z89.412 Acquired absence of left great toe; Z89.411 Acquired absence of right great toe; Z86.718 Personal history of other venous thrombosis and embolism; Z89.421 Acquired absence of other right toe(s); Z79.84 Long term (current) use of oral hypoglycemic drugs; Z79.02 Long term (current) use of antithrombotics/antiplatelets; Z79.4 Long term (current) use of insulin; Y83.8 Other surgical procedures as the cause of abnormal reaction of the patient, or of later complication, without mention of misadventure at the time of the procedure ==

== ENCOUNTER → 2017-12-19 | Outpatient (CLI) | payer BC | LOC: HYPER 07:00 | DX: T81.89XD Other complications of procedures, not elsewhere classified, subsequent encounter (principal); E11.621 Type 2 diabetes mellitus with foot ulcer; L97.512 Non-pressure chronic ulcer of other part of right foot with fat layer exposed; E11.43 Type 2 diabetes mellitus with diabetic autonomic (poly)neuropathy; E11.69 Type 2 diabetes mellitus with other specified complication; M86.271 Subacute osteomyelitis, right ankle and foot; I10 Essential (primary) hypertension; L84 Corns and callosities; M19.90 Unspecified osteoarthritis, unspecified site; K21.9 Gastro-esophageal reflux disease without esophagitis; F17.210 Nicotine dependence, cigarettes, uncomplicated; F41.9 Anxiety disorder, unspecified; Z86.718 Personal history of other venous thrombosis and embolism; Z79.84 Long term (current) use of oral hypoglycemic drugs; Z79.02 Long term (current) use of antithrombotics/antiplatelets; Z79.4 Long term (current) use of insulin; Z89.421 Acquired absence of other right toe(s); Z89.412 Acquired absence of left great toe; Z89.411 Acquired absence of right great toe; Y83.8 Other surgical procedures as the cause of abnormal reaction of the patient, or of later complication, without mention of misadventure at the time of the procedure ==

== ENCOUNTER → 2018-01-04 | Outpatient (CLI) | payer BC | LOC: HYPER 07:13 | DX: E11.621 Type 2 diabetes mellitus with foot ulcer (principal); L97.514 Non-pressure chronic ulcer of other part of right foot with necrosis of bone; L89.893 Pressure ulcer of other site, stage 3; E11.69 Type 2 diabetes mellitus with other specified complication; M86.271 Subacute osteomyelitis, right ankle and foot; E11.43 Type 2 diabetes mellitus with diabetic autonomic (poly)neuropathy; L84 Corns and callosities; K21.9 Gastro-esophageal reflux disease without esophagitis; I10 Essential (primary) hypertension; M19.90 Unspecified osteoarthritis, unspecified site; F41.9 Anxiety disorder, unspecified; F17.200 Nicotine dependence, unspecified, uncomplicated; Z79.84 Long term (current) use of oral hypoglycemic drugs; Z79.4 Long term (current) use of insulin; Z79.02 Long term (current) use of antithrombotics/antiplatelets; Z86.718 Personal history of other venous thrombosis and embolism; Z89.412 Acquired absence of left great toe; Z89.411 Acquired absence of right great toe; Z89.421 Acquired absence of other right toe(s) ==

== ENCOUNTER → 2018-02-13 | Outpatient (CLI) | payer BC | LOC: HYPER 06:58 | DX: T81.89XD Other complications of procedures, not elsewhere classified, subsequent encounter (principal); E11.621 Type 2 diabetes mellitus with foot ulcer; L97.512 Non-pressure chronic ulcer of other part of right foot with fat layer exposed; L89.893 Pressure ulcer of other site, stage 3; L84 Corns and callosities; E11.43 Type 2 diabetes mellitus with diabetic autonomic (poly)neuropathy; E11.69 Type 2 diabetes mellitus with other specified complication; M86.271 Subacute osteomyelitis, right ankle and foot; I10 Essential (primary) hypertension; K21.9 Gastro-esophageal reflux disease without esophagitis; F17.290 Nicotine dependence, other tobacco product, uncomplicated; Z86.718 Personal history of other venous thrombosis and embolism; M19.90 Unspecified osteoarthritis, unspecified site; Z79.84 Long term (current) use of oral hypoglycemic drugs; Z89.411 Acquired absence of right great toe; Z89.412 Acquired absence of left great toe; Z89.421 Acquired absence of other right toe(s); Z79.02 Long term (current) use of antithrombotics/antiplatelets; Z79.4 Long term (current) use of insulin; Y83.8 Other surgical procedures as the cause of abnormal reaction of the patient, or of later complication, without mention of misadventure at the time of the procedure ==

== ENCOUNTER → 2018-02-27 | Outpatient (CLI) | payer BC | LOC: HYPER 06:55 | DX: T81.89XD Other complications of procedures, not elsewhere classified, subsequent encounter (principal); E11.621 Type 2 diabetes mellitus with foot ulcer; L97.516 Non-pressure chronic ulcer of other part of right foot with bone involvement without evidence of necrosis; L84 Corns and callosities; E11.43 Type 2 diabetes mellitus with diabetic autonomic (poly)neuropathy; E11.69 Type 2 diabetes mellitus with other specified complication; M86.271 Subacute osteomyelitis, right ankle and foot; I10 Essential (primary) hypertension; K21.9 Gastro-esophageal reflux disease without esophagitis; M19.90 Unspecified osteoarthritis, unspecified site; F17.290 Nicotine dependence, other tobacco product, uncomplicated; Z86.718 Personal history of other venous thrombosis and embolism; Z79.84 Long term (current) use of oral hypoglycemic drugs; Z89.412 Acquired absence of left great toe; Z89.411 Acquired absence of right great toe; Z89.421 Acquired absence of other right toe(s); Z79.02 Long term (current) use of antithrombotics/antiplatelets; Z79.4 Long term (current) use of insulin; Y83.8 Other surgical procedures as the cause of abnormal reaction of the patient, or of later complication, without mention of misadventure at the time of the procedure ==

== ENCOUNTER → 2018-03-21 | Outpatient (CLI) | payer BC | LOC: HYPER 03-13 15:35 | DX: T81.89XD Other complications of procedures, not elsewhere classified, subsequent encounter (principal); E11.621 Type 2 diabetes mellitus with foot ulcer; L97.516 Non-pressure chronic ulcer of other part of right foot with bone involvement without evidence of necrosis; L84 Corns and callosities; E11.43 Type 2 diabetes mellitus with diabetic autonomic (poly)neuropathy; E11.69 Type 2 diabetes mellitus with other specified complication; M86.271 Subacute osteomyelitis, right ankle and foot; I10 Essential (primary) hypertension; K21.9 Gastro-esophageal reflux disease without esophagitis; M19.90 Unspecified osteoarthritis, unspecified site; F17.290 Nicotine dependence, other tobacco product, uncomplicated; F41.9 Anxiety disorder, unspecified; Z79.84 Long term (current) use of oral hypoglycemic drugs; Z79.02 Long term (current) use of antithrombotics/antiplatelets; Z79.4 Long term (current) use of insulin; Z89.411 Acquired absence of right great toe; Z89.412 Acquired absence of left great toe; Z89.421 Acquired absence of other right toe(s); Z86.718 Personal history of other venous thrombosis and embolism; Y83.8 Other surgical procedures as the cause of abnormal reaction of the patient, or of later complication, without mention of misadventure at the time of the procedure ==

== ENCOUNTER → 2018-04-04 | Outpatient (CLI) | payer BC | LOC: HYPER 06:50 | DX: T81.89XD Other complications of procedures, not elsewhere classified, subsequent encounter (principal); E11.621 Type 2 diabetes mellitus with foot ulcer; L97.516 Non-pressure chronic ulcer of other part of right foot with bone involvement without evidence of necrosis; E11.43 Type 2 diabetes mellitus with diabetic autonomic (poly)neuropathy; E11.69 Type 2 diabetes mellitus with other specified complication; M86.271 Subacute osteomyelitis, right ankle and foot; I10 Essential (primary) hypertension; K21.9 Gastro-esophageal reflux disease without esophagitis; L84 Corns and callosities; M19.90 Unspecified osteoarthritis, unspecified site; F17.290 Nicotine dependence, other tobacco product, uncomplicated; F41.9 Anxiety disorder, unspecified; Z89.439 Acquired absence of unspecified foot; Z86.718 Personal history of other venous thrombosis and embolism; Z79.84 Long term (current) use of oral hypoglycemic drugs; Z79.02 Long term (current) use of antithrombotics/antiplatelets; Z79.4 Long term (current) use of insulin; Y83.8 Other surgical procedures as the cause of abnormal reaction of the patient, or of later complication, without mention of misadventure at the time of the procedure ==

== ENCOUNTER → 2018-06-26 | Outpatient (CLI) | payer BC | LOC: HYPER 05-02 07:00 | DX: T87.89 Other complications of amputation stump (principal); E11.621 Type 2 diabetes mellitus with foot ulcer; L97.511 Non-pressure chronic ulcer of other part of right foot limited to breakdown of skin; L84 Corns and callosities; E11.69 Type 2 diabetes mellitus with other specified complication; M86.8X8 Other osteomyelitis, other site; E11.43 Type 2 diabetes mellitus with diabetic autonomic (poly)neuropathy; I10 Essential (primary) hypertension; K21.9 Gastro-esophageal reflux disease without esophagitis; M19.90 Unspecified osteoarthritis, unspecified site; F17.290 Nicotine dependence, other tobacco product, uncomplicated; F41.9 Anxiety disorder, unspecified; Z86.718 Personal history of other venous thrombosis and embolism; Z79.84 Long term (current) use of oral hypoglycemic drugs; Z79.02 Long term (current) use of antithrombotics/antiplatelets; Z79.4 Long term (current) use of insulin; Y83.5 Amputation of limb(s) as the cause of abnormal reaction of the patient, or of later complication, without mention of misadventure at the time of the procedure ==

== ENCOUNTER → 2018-07-19 | Outpatient (CLI) | payer BC | LOC: HYPER 06:52 | DX: T87.89 Other complications of amputation stump (principal); E11.69 Type 2 diabetes mellitus with other specified complication; M86.8X8 Other osteomyelitis, other site; E11.43 Type 2 diabetes mellitus with diabetic autonomic (poly)neuropathy; L84 Corns and callosities; I10 Essential (primary) hypertension; K21.9 Gastro-esophageal reflux disease without esophagitis; M19.90 Unspecified osteoarthritis, unspecified site; F17.290 Nicotine dependence, other tobacco product, uncomplicated; F41.9 Anxiety disorder, unspecified; Z89.412 Acquired absence of left great toe; Z86.718 Personal history of other venous thrombosis and embolism; Z79.84 Long term (current) use of oral hypoglycemic drugs; Z79.02 Long term (current) use of antithrombotics/antiplatelets; Z79.4 Long term (current) use of insulin; Y83.5 Amputation of limb(s) as the cause of abnormal reaction of the patient, or of later complication, without mention of misadventure at the time of the procedure ==

== ENCOUNTER → 2018-10-08 | Outpatient (CLI) | payer BC | LOC: HYPER 08-30 06:36 | DX: T87.89 Other complications of amputation stump (principal); E11.43 Type 2 diabetes mellitus with diabetic autonomic (poly)neuropathy; E11.69 Type 2 diabetes mellitus with other specified complication; M86.8X8 Other osteomyelitis, other site; I10 Essential (primary) hypertension; K21.9 Gastro-esophageal reflux disease without esophagitis; M19.90 Unspecified osteoarthritis, unspecified site; F41.9 Anxiety disorder, unspecified; F17.290 Nicotine dependence, other tobacco product, uncomplicated; Z89.411 Acquired absence of right great toe; Z89.412 Acquired absence of left great toe; Z89.421 Acquired absence of other right toe(s); Z86.718 Personal history of other venous thrombosis and embolism; Z79.84 Long term (current) use of oral hypoglycemic drugs; Z79.02 Long term (current) use of antithrombotics/antiplatelets; Z79.4 Long term (current) use of insulin; Y83.5 Amputation of limb(s) as the cause of abnormal reaction of the patient, or of later complication, without mention of misadventure at the time of the procedure ==

== ENCOUNTER → 2018-11-06 | Outpatient (CLI) | payer BC | LOC: HYPER 07:03 | DX: T87.89 Other complications of amputation stump (principal); E11.43 Type 2 diabetes mellitus with diabetic autonomic (poly)neuropathy; I10 Essential (primary) hypertension; E11.69 Type 2 diabetes mellitus with other specified complication; M86.8X8 Other osteomyelitis, other site; M19.90 Unspecified osteoarthritis, unspecified site; L84 Corns and callosities; K21.9 Gastro-esophageal reflux disease without esophagitis; F17.290 Nicotine dependence, other tobacco product, uncomplicated; F41.9 Anxiety disorder, unspecified; Z86.718 Personal history of other venous thrombosis and embolism; Z79.84 Long term (current) use of oral hypoglycemic drugs; Z79.02 Long term (current) use of antithrombotics/antiplatelets; Z79.4 Long term (current) use of insulin; Z89.412 Acquired absence of left great toe; Z89.411 Acquired absence of right great toe; Z89.421 Acquired absence of other right toe(s); Y83.5 Amputation of limb(s) as the cause of abnormal reaction of the patient, or of later complication, without mention of misadventure at the time of the procedure ==

== ENCOUNTER → 2018-12-03 | Outpatient (CLI) | payer OTHER | LOC: HYPER 11-20 06:34 | DX: T87.89 Other complications of amputation stump (principal); E11.43 Type 2 diabetes mellitus with diabetic autonomic (poly)neuropathy; E11.69 Type 2 diabetes mellitus with other specified complication; M86.8X8 Other osteomyelitis, other site; I10 Essential (primary) hypertension; L84 Corns and callosities; M19.90 Unspecified osteoarthritis, unspecified site; K21.9 Gastro-esophageal reflux disease without esophagitis; F17.290 Nicotine dependence, other tobacco product, uncomplicated; F41.9 Anxiety disorder, unspecified; Z89.412 Acquired absence of left great toe; Z89.511 Acquired absence of right leg below knee; Z79.84 Long term (current) use of oral hypoglycemic drugs; Z79.02 Long term (current) use of antithrombotics/antiplatelets; Z79.4 Long term (current) use of insulin; Z86.718 Personal history of other venous thrombosis and embolism; Z89.411 Acquired absence of right great toe; Z89.421 Acquired absence of other right toe(s); Y83.5 Amputation of limb(s) as the cause of abnormal reaction of the patient, or of later complication, without mention of misadventure at the time of the procedure ==

== ENCOUNTER → 2020-06-01 | Outpatient (CLI) | payer OTHER | LOC: HYPER 12:53 | PROVIDERS: ATTEND Emergency Medicine | DX: T87.89 Other complications of amputation stump (principal); S81.811A Laceration without foreign body, right lower leg, initial encounter; S80.11XA Contusion of right lower leg, initial encounter; L03.115 Cellulitis of right lower limb; E11.43 Type 2 diabetes mellitus with diabetic autonomic (poly)neuropathy; E11.69 Type 2 diabetes mellitus with other specified complication; M86.8X8 Other osteomyelitis, other site; I10 Essential (primary) hypertension; K21.9 Gastro-esophageal reflux disease without esophagitis; M19.90 Unspecified osteoarthritis, unspecified site; F17.290 Nicotine dependence, other tobacco product, uncomplicated; F41.9 Anxiety disorder, unspecified; Z86.718 Personal history of other venous thrombosis and embolism; Z79.02 Long term (current) use of antithrombotics/antiplatelets; Z79.4 Long term (current) use of insulin; X58.XXXA Exposure to other specified factors, initial encounter; Y93.89 Activity, other specified; Y92.89 Other specified places as the place of occurrence of the external cause; Y99.8 Other external cause status; Y83.5 Amputation of limb(s) as the cause of abnormal reaction of the patient, or of later complication, without mention of misadventure at the time of the procedure ==

== ENCOUNTER → 2020-06-11 | Outpatient (CLI) | payer OTHER | LOC: HYPER 14:03 | PROVIDERS: ATTEND Emergency Medicine | DX: T87.89 Other complications of amputation stump (principal); S81.811D Laceration without foreign body, right lower leg, subsequent encounter; S80.11XD Contusion of right lower leg, subsequent encounter; L03.115 Cellulitis of right lower limb; E11.43 Type 2 diabetes mellitus with diabetic autonomic (poly)neuropathy; E11.69 Type 2 diabetes mellitus with other specified complication; M86.8X8 Other osteomyelitis, other site; I10 Essential (primary) hypertension; K21.9 Gastro-esophageal reflux disease without esophagitis; M19.90 Unspecified osteoarthritis, unspecified site; F17.290 Nicotine dependence, other tobacco product, uncomplicated; F41.9 Anxiety disorder, unspecified; Z86.718 Personal history of other venous thrombosis and embolism; Z79.02 Long term (current) use of antithrombotics/antiplatelets; Z79.4 Long term (current) use of insulin; X58.XXXD Exposure to other specified factors, subsequent encounter; Y83.5 Amputation of limb(s) as the cause of abnormal reaction of the patient, or of later complication, without mention of misadventure at the time of the procedure ==

== ENCOUNTER → 2020-06-25 | Outpatient (CLI) | payer OTHER | LOC: HYPER 10:14 | PROVIDERS: ATTEND Emergency Medicine | DX: T87.89 Other complications of amputation stump (principal); S81.811D Laceration without foreign body, right lower leg, subsequent encounter; S80.11XD Contusion of right lower leg, subsequent encounter; L03.115 Cellulitis of right lower limb; E11.43 Type 2 diabetes mellitus with diabetic autonomic (poly)neuropathy; E11.69 Type 2 diabetes mellitus with other specified complication; M86.8X8 Other osteomyelitis, other site; I10 Essential (primary) hypertension; K21.9 Gastro-esophageal reflux disease without esophagitis; M19.90 Unspecified osteoarthritis, unspecified site; F17.290 Nicotine dependence, other tobacco product, uncomplicated; F41.9 Anxiety disorder, unspecified; Z86.718 Personal history of other venous thrombosis and embolism; Z79.02 Long term (current) use of antithrombotics/antiplatelets; Z79.4 Long term (current) use of insulin; X58.XXXD Exposure to other specified factors, subsequent encounter; Y83.5 Amputation of limb(s) as the cause of abnormal reaction of the patient, or of later complication, without mention of misadventure at the time of the procedure ==

== ENCOUNTER 2021-01-21 17:19 | Emergency (ER) | payer OTHER ==
[~2021-01-21] VITALS: Ht 203.2 cm; Wt 124.3 kg
[2021-01-21] MEDS ORDERED: NEURONTIN 300M300 M2 PO (17:23)
[2021-01-21] MEDS ORDERED: XARELTO10 M1 PO ×2 (17:42→17:54)
[2021-01-21] MEDS ORDERED: BACTRIM DS TAB1 EAC1 PO (17:42)
[2021-01-21 17:43] VITALS: BP 141/97
[2021-01-21] MEDS ORDERED: XARELTO20 MG PO (17:54)
== END 2021-01-21 17:43 | disposition home or self-care (01) ==
LOC: ER 17:19
DX: L03.115 Cellulitis of right lower limb (principal); E11.40 Type 2 diabetes mellitus with diabetic neuropathy, unspecified; F17.210 Nicotine dependence, cigarettes, uncomplicated; Z76.0 Encounter for issue of repeat prescription; Z79.899 Other long term (current) drug therapy; Z88.6 Allergy status to analgesic agent; Z86.711 Personal history of pulmonary embolism; Z86.718 Personal history of other venous thrombosis and embolism

== ENCOUNTER 2021-02-15 09:37 | Emergency (ER) | payer OTHER ==
[~2021-02-15] VITALS: Ht 203.2 cm; Wt 124.3 kg
[~2021-02-15 09:37] MED LIST changes: +BACTRIM DS TAB1 EAC1 PO; +NEURONTIN 300M300 M2 PO; +XARELTO10 M1 PO
[2021-02-15 09:38] VITALS: BP 146/90
[2021-02-15] MEDS ORDERED: DOXYCYCLINE 10100 MG PO (10:05)
== END 2021-02-15 10:06 | disposition home or self-care (01) ==
LOC: ER 09:37
DX: L03.115 Cellulitis of right lower limb (principal); E11.40 Type 2 diabetes mellitus with diabetic neuropathy, unspecified; Z88.5 Allergy status to narcotic agent; Z79.899 Other long term (current) drug therapy

== ENCOUNTER 2021-03-01 12:26 | Emergency (ER) | payer OTHER ==
[~2021-03-01] VITALS: Ht 203.2 cm; Wt 124.3 kg
[~2021-03-01 12:26] MED LIST changes: +DOXYCYCLINE 10100 MG PO
[2021-03-01] MEDS ORDERED: DOXYCYCLINE 10100 MG PO (14:10)
[2021-03-01 14:35] VITALS: BP 143/96
== END 2021-03-01 14:35 | disposition home or self-care (01) ==
LOC: ER 12:26
DX: Z48.01 Encounter for change or removal of surgical wound dressing (principal); E11.40 Type 2 diabetes mellitus with diabetic neuropathy, unspecified; F17.210 Nicotine dependence, cigarettes, uncomplicated; Z86.711 Personal history of pulmonary embolism; Z86.718 Personal history of other venous thrombosis and embolism; Z79.891 Long term (current) use of opiate analgesic; Z79.899 Other long term (current) drug therapy; Z79.1 Long term (current) use of non-steroidal anti-inflammatories (NSAID); Z88.5 Allergy status to narcotic agent

== ENCOUNTER 2021-05-03 14:23 | Emergency (ER) | payer OTHER ==
[~2021-05-03] VITALS: Ht 203.2 cm; Wt 122.9 kg
[2021-05-03 18:36] VITALS: BP 155/97
== END 2021-05-03 18:37 | disposition home or self-care (01) ==
LOC: ER 14:23
DX: I73.9 Peripheral vascular disease, unspecified (principal); L98.8 Other specified disorders of the skin and subcutaneous tissue; E11.40 Type 2 diabetes mellitus with diabetic neuropathy, unspecified; F17.210 Nicotine dependence, cigarettes, uncomplicated; Z86.718 Personal history of other venous thrombosis and embolism; Z79.891 Long term (current) use of opiate analgesic; Z79.899 Other long term (current) drug therapy; Z88.6 Allergy status to analgesic agent

== ENCOUNTER 2021-05-17 15:15 | Inpatient (IN) | payer OTHER ==
[~2021-05-17] VITALS: Ht 203.2 cm; Wt 121.6 kg
[2021-05-17 16:19] VITALS: BP 139/84
[2021-05-17 17:31] LABS: BASOPHILS 1.1 % (0.0-2.0); EOSINOPHILS 0.6 % (0.0-3.0); HEMATOCRIT 45.6 % (42.0-52.0); HEMOGLOBIN 15.2 gm/dL (14.0-18.0); LYMPHOCYTES 22.9 % (24.0-44.0); MCH 27.7 pg (26.0-34.0); MCHC 33.3 g/dL (28.0-37.0); MCV 83.2 fL (80.0-100.0); MONOCYTES 6.8 % (1.0-8.0); PLATELET COUNT 665 thou/uL (150-400); POLYS 68.6 % (36.0-66.0); RBC 5.49 mil/uL (4.50-6.00); RDW 15.2 % (10.5-14.5); WBC 13.1 thou/uL (4.0-11.0)
[2021-05-17 17:37] LABS: CALCIUM 9.4 mg/dL (8.5-10.1); CREATININE 0.9 mg/dL (0.7-1.3); POTASSIUM 4.1 mmol/L (3.5-5.1)
[2021-05-17 17:43] LABS: ALBUMIN 2.9 g/dL (3.4-5.0); TOTAL BILIRUBIN 0.4 mg/dL (0.2-1.0); TOTAL PROTEIN 8.9 g/dL (6.4-8.2)
[2021-05-17 20:13] LABS: APTT 29.5 Seconds (24.5-32.8); INR 0.97; PROTIME 10.6 Seconds (10.5-12.1)
[2021-05-18] VITALS (7 sets, daily range): BP systolic 121–143; BP diastolic 73–89
[2021-05-18 06:35] LABS: HEMATOCRIT 38.7 % (42.0-52.0); HEMOGLOBIN 13.4 gm/dL (14.0-18.0); MCH 28.8 pg (26.0-34.0); MCHC 34.5 g/dL (28.0-37.0); MCV 83.4 fL (80.0-100.0); RBC 4.64 mil/uL (4.50-6.00); RDW 15.3 % (10.5-14.5); WBC 9.2 thou/uL (4.0-11.0)
[2021-05-18 06:46] LABS: CALCIUM 8.9 mg/dL (8.5-10.1); CREATININE 0.8 mg/dL (0.7-1.3); POTASSIUM 4.3 mmol/L (3.5-5.1)
--- NOTE | 2021-05-18 13:42 | NUR ---
PT RECEIVED FROM LISA WOLFE RN, AT THE TIME OF ENTERANCE IN THE PATIENT'S ROOM WAS AT THE BEDSIDE, WHEN INTRODUCED SELF, AT BEDSIDE HAD QUESTIONS REGARDING PLAN OF CARE AND INTERVENTIONS BEING PROVIDED. RN PROVIDED UPDATE BEST POSSIBLE FROM READING PROVIDERS NOTES, STATED THE REASON AND RATIOALE FOR TODAY'S IR PROCEDURE AND CALLED IN ALL NECESSARY CONSULTS. PT WAS TAKEN DOWN TO IR BY STAFF MEMBER WITH AT SIDE. ALL ANTIBIOTICS HUNG AT APPROPERIATE TIME. RN SIGNING OFF
[2021-05-18 16:38] LABS: INR 1.05; PROTIME 11.4 Seconds (10.5-12.1)
[2021-05-18 16:41] LABS: APTT 40.2 Seconds (24.5-32.8)
--- NOTE | 2021-05-18 17:45 | NUR ---
Consult rec'd as pt admited with no insurance pt pay. Referral to [facility] to screen [place] completed. 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 He has insurance coverage starting 05-26-2021. Will follow along should the pt need assistance with medications at pr.
--- NOTE | 2021-05-18 17:52 | NUR ---
tpa started at 25ml/hr in the right groin catheter.
--- NOTE | 2021-05-18 20:52 | NUR ---
Nursing Note Patient very upset at start of shift; calling MD/Staff inappropriate names; asked patient to please refrain from that type of behavior; pt frustrated about being inpatient, wants to leave, refuses care, etc. Long discussion with patient about POC and clinical picture; pt stated he was unaware he had a clot in his artery and that was more serious than a DVT; explained sheath/TPA to patient; listened to concerns; approx 45minutes. 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 Pt stated he was uninsured. RN discussed patient right's; and had a lenghty conversation of possible outcomes including r/t leaving the hospital AMA; pt stated he wanted to see how tomorrow went; but was not happy being inpatient, his care up until being in ICU. Pt relaxed slightly; was appreciative of RN convo. Now resting with HOB less than 10, trendelenberg to eat, discussed keeping right hip/leg straight- pt annoyed but agreeable to continue care for tonight. Will notify attending.- pt also requested minimal interruptions throughout night. Ovidio COOK RN
[2021-05-19] VITALS (10 sets, daily range): BP systolic 116–147; BP diastolic 72–86
--- NOTE | 2021-05-19 01:48 | NUR ---
[email or web address] ISSUE Noted under status board; care activities show they were completed 1 day ago; though just being completed. Under 'view history' assessments/time correct. Ovidio COOK RN
[2021-05-19 07:08] LABS: GLYCOHEMOGLOBIN (HGB A1C) 13.1 % (4.8-5.6)
[2021-05-19 08:34] LABS: HEMATOCRIT 39.3 % (42.0-52.0); HEMOGLOBIN 13.3 gm/dL (14.0-18.0); MCH 28.1 pg (26.0-34.0); MCV 82.6 fL (80.0-100.0); RBC 4.76 mil/uL (4.50-6.00); WBC 10.2 thou/uL (4.0-11.0)
[2021-05-19 09:06] LABS: CALCIUM 8.6 mg/dL (8.5-10.1); CREATININE 0.7 mg/dL (0.7-1.3); MAGNESIUM 1.5 mg/dL (1.8-2.4)
--- NOTE | 2021-05-19 09:09 | NUR ---
Assess due to RD consult received. Admit with PAD, LLE wound, gangrenous with possible need for amputation. Hx DM, poorly controlled (A1C 13.1), Right BKA, HTN, DVT. 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 Has been refusing all cares. Voiced hunger last evening. Wt loss about 6 lb over 2 mo/2% not significant. When diet ready to advance, recommend carb control and will add john bid. Low nutrition risk.
--- NOTE | 2021-05-19 13:54 | NUR ---
PT ASKED ABOUT HAVING A BOWEL MOVEMENT. RN BROUGHT PT A BEDSIDE CAMMODE. PT REFUSED A BED WEATHERS. 2 RN WERE PRESENT TO HELP PT TO BEDSIDE CAMMODE. PT STATED "I AM 50 YEARS OLD, I AM NOT AN ADOLECENT, YOU DO NOT NEED TO TREAT ME LIKE A CHILD. I HAVE DONE WITH FOR 20 YEARS." PT THEN TORE OFF HIS FALL BAND AND SAID THAT HE WAS GOING TO RIP OFF ALL LEADS AND IV. BOTH RN LEFT ROOM PER PT REQUEST. RN TOLD NURSE QUITLINE COUNSELOR AND HOSPITALIST OF EVENT. RN CHECKED ON PT, PT STATED TO TOOKS HIS ECG LEADS, BP CUFF AND O2 SAT AND WAS NOT PUTTING THEM BACK ON. PT STATED HE WAS GETTING DRESSED AND WHEN HIS ARRIVED DECIDING IF HE WS LEAVING OR NOT. RN WILL CONTINUE TO FOLLOW PLAN OF CARE.
--- NOTE | 2021-05-19 14:25 | NUR ---
PT ADMITTED RELATED TO GANGRENE OF LEFT FOOT AND PERIPHERAL ARTERIAL DISEASE. CM RVIEWED CHART AND SPOKE WITH CARE TEAM. PT'S CARE DISCUSSED DURING ICU ROUNDS THIS DAY. PT WAS DOWN IN IR THIS AM. PLAN WAS FOR PT TO HAVE TRANS MET AMP TOMORROW. NURSE INDICATED THAT PT IS REFUSING CARES AND HAD INDICATED HE WANTS TO LEAVE MONDAY AT THE LATEST AND MAY LEAVE AMA. CM MET WITH PT AT BEDSIDE THIS DAY. PT APPEARS TO BE A&O X4. CM ROLE INTRODUCED. PT WAS AGREEABLE TO SPEAKING WITH CM. HE INDICATED THAT HE RESIDES IN A HOUSE IN [place] WITH HIS FIANCE YULI PEDRAZA. HE INDICATED THAT HE HAS A RAMP TO ENTER AND NO STEPS THAT HE NEEDS TO NAVIGATE INSIDE. PT INDICATED HE HAS A MOTORIZED SCOOTER, A KNEE SCOOTER, AND A SHOWER CHAIR FOR HOME USE. 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 HE INDICATED THAT HE WILL HAVE INSURANCE IN 3 WEEKS. 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 PT HAS HX OF R HEIDI. PT INDICATED HE WANTS TO LEAVE TOMORROW FOLLOWING AMP AND WILL REFUSE IV ABX OUTPATIENT INFUSION/HOME INFUSION AND WILL ONLY CONSIDER ORAL ABX OPTIONS. PT ASKED TO SPEAK WITH ADMINISRATION. LOAN WORKOUT OFFICER AWARE. CM FOLLOWING.
--- NOTE | 2021-05-19 18:13 | NUR ---
TRANSFER FROM ICU. FULL CODE. A/O X 4. ROOM AIR. STAND BY-DOESNT WANT HELP TO TRANSFER. REFUSES TELE MONITOR. LEFT FOOT WOUND/NECROTIC. LEFT FOREARM IV WITH HEPARIN INFUSING. RIGHT GROIN DRESSING POST STENT PLACEMENT. NPO AT MIDNIGHT FOR SURGERY TOMORROW. NO PAIN NOTED. AT BEDSIDE.
[2021-05-20 07:25] VITALS: BP 130/81
--- NOTE | 2021-05-20 08:09 | NUR ---
PT ASSESSMENT COMPLETED AND VSS. ATTEMPTED TO GIVE MEDICATION ORDERED. PT REFUSED PLACEMENT OF A SECOND IV TO GIVE ANTIBIOTICS THROUGH. THE ONE IV WAS BEING USED FOR PTS HEPARIN GTT. PT WAS AGITATED AND YELLED AND ASKED THE RN PLANNING TO START THE IV TO LEAVE THE ROOM. CONTACTED ISSA FELICIANO ABOUT PT REFUSING SECOND NECESSARY IV TO KEEP MEDICATIONS ON TRACK. ALSO PT INITIALLY REFUSED TELE FOR DAYSHIFT. THEN AT PT DECIDED TO LET STAFF PUT THE TELE ON. AFTER MUCH EDUCATION AND ENCOURAGEMENT. THEN APPROXIMATELY 1 HOUR LATER PT PULLED TELE OFF WITHOUT ASKING STAFF. INFORMED ISSA FELICIANO. ALSO, PT HAD TO HAVE A BM URGENTLY. [facility] WAS MISSING BUCKET. THIS RN RAN TO FIND A BUCKET. PT TRANSFERED TO [facility] AND BECAUSE OF HIS URGENCY ACCIDENTLY PULLED HIS IV OUT. BECAUSE OF THE HEPARIN DRIP BLOOD WAS EVERYWHERE. APPLIED A PRESSURE DRESSING AND CLEANED PT AND FLOOR UP. INFORMED ISSA FELICIANO. NURSE RYAN WAS ABLE TO PLACE TWO VERY GOOD IVS. HEPARIN D/C AT MIDNIGHT AND PT NPO SINCE MIDNIGHT. WORKED ON GETTING IV MEDICATION COMPLETED. PT SLEEPING. WILL CONTINUE TO MONTITOR FREQUENTLY. PT WAS CURSING AND ANGRY SAYING THAT [facility] WAS NOT A PROFESSIONAL [facility] THAT HE NEVER WANTED TO COME HERE AGAIN. ASKED DAY RN TO THINK ABOUT CONTACTING THE PT ADVOCATE OR NURSE OIL TANKER CAPTAIN REGARDING THIS SITUATION.
--- NOTE | 2021-05-20 10:35 | HC ---
[facility] [place] [address] CONSULTATION Name: LARISA SILVA Room #: 441-P ADM IN M.R.#: [id number] Admission: 05/17/21 Attend Phys: Mars Smith MD Discharge: Date of : 70 Report #: [id number] THIS REPORT FOR: cc: MANNIE - Rehana family physician/PCP MANNIE - No family physician/PCP Michael Bolanos MD ~ DATE OF SERVICE: 05/19/2021 INFECTIOUS DISEASE CONSULTATION ATTENDING PHYSICIAN: Dr. Smith. REASON FOR EVALUATION: Left foot dry gangrene. HISTORY OF PRESENT ILLNESS: Chart reviewed. The patient examined. This is a 50-year-old gentleman with diabetes mellitus diagnosed 11-12 years ago, who has got a fairly significant sequelae including diffuse vasculopathy, who was noted to have developed a wound associated with the distal aspect of the left foot within the last 1-2 weeks. He noted it continued to worsen after he applied compression stocking with discoloration of the skin becoming lorri. He was evaluated and confirmed to have a gangrene. He notes he has essentially no feeling in his foot. He notes his blood sugars have been reasonably well controlled. He has not clearly had any significant fevers or chills. No pulmonary or gastrointestinal related complaints. He was evaluated and was noted to have significant obstructive changes associated with dorsalis pedis artery, monophasic changes in the posterior tibial. He did undergo confirmatory arteriogram with percutaneous thrombectomy of the left superficial femoral artery and left tibioperoneal trunk with stent graft placement in the left superficial femoral artery and initiated on thrombolysis. He is tentatively scheduled to undergo a transmetatarsal amputation. He has been empirically started on therapy with combination antibiotics including vancomycin and Zosyn. He denies any recent fevers. Notes his appetite has been satisfactory. ALLERGIES: CODEINE. CURRENT MEDICATIONS: Include clopidogrel, morphine, vancomycin, famotidine, Zosyn, hydralazine as needed, p.r.n. antiemetics and analgesics. 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 SOCIAL HISTORY: Former smoker. No illicit drug use. Occasional ethanol. FAMILY HISTORY: Noncontributory. [address] [address] CONSULTATION Name: LARISA SILVA Eric Room #: 441-P [facility] IN M.R.#: [id number] Admission: 05/17/21 Attend Phys: Mars Smith MD Discharge: Date of : 70 Report #: [id number] REVIEW OF SYSTEMS: Otherwise, unremarkable. PHYSICAL EXAMINATION: GENERAL: He is alert, cooperative, appears reasonably well nourished. VITAL SIGNS: Temperature 98.1, pulse 78, respirations 16, blood pressure 131/79. SKIN: Warm, dry, no rashes. HEENT: Normocephalic. Extraocular muscles intact. NECK: Supple. LUNGS: Generally clear to auscultation bilaterally. HEART: Regular. I do not appreciate a murmur. ABDOMEN: Slightly firm. He is obese, nontender. EXTREMITIES: Distal left lower extremity has a cutaneous infarction with dry gangrene. There is no particular odor, no drainage at this point. GENITOURINARY AND RECTAL: Deferred. LABORATORY DATA: CBC: White count of 10.2, H and H 13.3 and 39.3, platelets of 509. Electrolytes: Sodium 137, potassium 4.0, chloride 103, bicarbonate is 25, anion gap of 9, BUN and creatinine 9 and 0.7, estimated GFR of 119. Hemoglobin A1c 13.1. PT 11.4, INR of 1.05. ASSESSMENT AND PLAN: Left distal lower extremity with severe vasculopathy, obvious gangrene, though it appears to be dry at this point. I think it is reasonable to continue empiric therapy pending any additional surgical intervention and noted ideally it has improved the perfusion. He is quite adamant about not receiving parenteral therapy. So tentatively we will plan on enteral antibiotics on discharge. I did discuss with him about some of the benefits of parenteral therapy including optimizing drug levels in particular given the likely gradient. Continue wound care as prescribed. We will follow. <ELECTRONICALLY SIGNED> By: Michael Bolanos MD 05/20/21 1035 [id number] Michael Bolanos MD /nt
[2021-05-20] MEDS ORDERED: CLOPIDOGREL75 MG PO (10:50)
[2021-05-20] MEDS ORDERED: XARELTO20 MG PO (10:51)
--- NOTE | 2021-05-20 11:28 | NUR ---
1125 ENRIQUE FROM [facility] CALLED FOR REPORT ON PATIENT. REPORT GIVEN. ALL QUESTIONS ANSWERED. ENRIQUE STATED THEY WILL BE HERE AROUND 12-1215 TO GET PATIENT FOR PROCEDURE.
--- NOTE | 2021-05-20 11:50 | NUR ---
Chart review. discussed during los. Cm visited with shirley and his at bedside right before he was going for amputation. Shirley did not was to talk about dc other than, i am going home tomorrow at 9 am. i have my xarelto and plavix already and i will be going home tomorrow. i have told the dr venancio watson. dcp home
--- NOTE | 2021-05-20 12:22 | NUR ---
1200 SURGERY NURSE AND TECH CAME TO GET PATIENT. PT NO LONGER ON FLOOR
[2021-05-20 19:30] VITALS: BP 123/80
--- NOTE | 2021-05-21 06:13 | NUR ---
ASSUMED CARE AT 1900, PT LAYING COMFORTABLY IN BED, NO CONCERNS VOICED COMPLIANT TO CARE, TOLARATED MEDICATIONS WELL, NO ADVERSE REACTION NOTED, REPORTS DISCHARGING 05/21, ALREADY INFORMED THE TO COME PICK HIM UP, SLEPT THROUGH THE NIGHT WILL CONTINUE T0 MPNITOR.
[2021-05-21 08:01] VITALS: BP 144/75
--- NOTE | 2021-05-21 08:22 | HC ---
[facility] [place] [address] CONSULTATION Name: LARISA SILVA Room #: 441-P ADM IN M.R.#: [id number] Admission: 05/17/21 Attend Phys: Mars Smith MD Discharge: Date of : 70 Report #: [id number] THIS REPORT FOR: cc: FAM - No family physician/PCP FAM - No family physician/PCP Richi Ferreira MD ~ DATE OF SERVICE: 05/19/2021 WOUND CARE CONSULTATION CHIEF COMPLAINT: Ischemic changes to the left lower extremity. HISTORY OF PRESENT ILLNESS: This is a 50-year-old male patient who presented to the Emergency Department with concerns for worsening left lower extremity ulceration and ischemic change. He was apparently seen in the Emergency Department 8 days ago and was prescribed antibiotics. I have seen him in the distant past in the hospital. He has a prior below-knee amputation on the right side. PAST MEDICAL HISTORY: Positive for type 2 diabetes mellitus, hypertension, DVT, pulmonary embolus, diabetic foot ulcer, multiple toe amputations. He has not been anticoagulated due to lack of insurance coverage. SOCIAL HISTORY: The patient is a former smoker. No alcohol or tobacco use. FAMILY HISTORY: Noncontributory. MEDICATIONS: Currently are Plavix, famotidine, glucagon, hydralazine, morphine, Zosyn, vancomycin. ALLERGIES: CODEINE. REVIEW OF SYSTEMS: CONSTITUTIONAL: The patient denies fever, chills or weight loss. NEUROLOGICAL: The patient denies focal weakness, numbness, tingling. EYES: The patient denies visual changes, redness or drainage. ENT: The patient denies earache, nasal drainage, sore throat. CARDIOVASCULAR: The patient denies chest pain, palpitations, diaphoresis. PULMONARY: No cough or shortness of breath. GASTROINTESTINAL: Denies nausea, diarrhea or abdominal pain. ORTHOPEDIC: The patient complains of minimal pain, but necrotic changes to the toes and forefoot on the left side. Others systems in a 14-point review of systems are negative. PHYSICAL EXAMINATION: VITAL SIGNS: The patient's vital at this time include temperature 36.7, pulse [facility] [address] [place] [address] CONSULTATION Name: LARISA SILVA Room #: 441-P [facility] IN ..#: [id number] Admission: 05/17/21 Attend Phys: Mars Smith MD Discharge: Date of : 70 Report #: [id number], respiration of 16, blood pressure 131/79. GENERAL: This is a chronically ill-appearing male patient who appears to be in minimal distress. HEENT: Head normocephalic. Nose and throat clear. NECK: Supple. LUNGS: Clear. ABDOMEN: Soft. EXTREMITIES: Examination of the lower extremities demonstrate a right BKA, Tubigrip or stump feed research technician is in place. Left foot demonstrates necrosis with dry gangrene of the left forefoot. NEUROLOGIC: The patient is alert, oriented and appropriate. LABORATORY DATA: Include sodium 137, potassium 4.0, chloride 103, CO2 of 25, BUN 9, creatinine 0.7, glucose 119. White blood cell count 10.2 with a hemoglobin of 13.3. IMAGING STUDIES: Arteriogram demonstrates occlusion of the left superficial femoral artery and left tibioperoneal trunk. He underwent a primary arterial thrombectomy of the left superficial femoral artery and tibioperoneal trunk with good patency throughout the left SFA restored. CLINICAL IMPRESSION: 1. Ischemic necrosis involving the left forefoot. 2. Underlying osteomyelitis. 3. Type 2 diabetes mellitus. 4. Severe peripheral diabetic neuropathy. RECOMMENDATIONS: The patient has been seen by ____ and has undergone interventional radiology revascularization procedure. Likely, he will require a transmetatarsal amputation performed by Podiatry. We will recommend Betadine paint and dry dressings, otherwise, in the meantime. I appreciate being asked to see him in consultation. <ELECTRONICALLY SIGNED> By: Richi Ferreira MD 05/21/21 0822 [id number] [id number] Richi Ferreira MD /nt
[2021-05-21] MEDS ORDERED: GLIMEPIRIDE4 MG PO (09:56)
[2021-05-21] MEDS ORDERED: DOXYCYCLINE 10100 MG PO (10:07)
[2021-05-21 11:24] VITALS: BP 144/75
== END 2021-05-21 13:21 | disposition home or self-care (01) | DRG 271 ==
LOC: ER 15:15 → EROBS 20:08 → ICU 20:08 → EROBS 05-18 11:14 → ICU 05-18 18:56 → 4S 05-19 10:13
PROVIDERS: Emergency Medicine; Nuclear Medicine Nuclear Cardiology; Nurse Practitioner Family; ADMIT Internal Medicine; ATTEND Internal Medicine
DX: E11.52 Type 2 diabetes mellitus with diabetic peripheral angiopathy with gangrene (principal); I96 Gangrene, not elsewhere classified; M31.9 Necrotizing vasculopathy, unspecified; E46 Unspecified protein-calorie malnutrition; M86.8X7 Other osteomyelitis, ankle and foot; I10 Essential (primary) hypertension; M21.962 Unspecified acquired deformity of left lower leg; Z20.822 Contact with and (suspected) exposure to COVID-19; E11.42 Type 2 diabetes mellitus with diabetic polyneuropathy; E11.69 Type 2 diabetes mellitus with other specified complication; Z86.718 Personal history of other venous thrombosis and embolism; Z86.711 Personal history of pulmonary embolism; Z88.6 Allergy status to analgesic agent; Z87.891 Personal history of nicotine dependence; Z82.49 Family history of ischemic heart disease and other diseases of the circulatory system; Z68.29 Body mass index [BMI] 29.0-29.9, adult
CPT/HCPCS: 10100; 10195; 10203; 50010; 50101; 50386; 50951; 51412; 51741; 57091; 58642; 62110; 62850; 70005

== ENCOUNTER → 2021-06-14 | Outpatient (CLI) | payer OTHER ==
[~2021-06-14] MED LIST changes: +CLOPIDOGREL75 MG PO; +GLIMEPIRIDE4 MG PO
== END ==
LOC: HYPER 08:33
PROVIDERS: ATTEND Emergency Medicine
DX: T87.81 Dehiscence of amputation stump (principal); S81.811D Laceration without foreign body, right lower leg, subsequent encounter; I70.245 Atherosclerosis of native arteries of left leg with ulceration of other part of foot; L97.521 Non-pressure chronic ulcer of other part of left foot limited to breakdown of skin; S80.11XD Contusion of right lower leg, subsequent encounter; L03.115 Cellulitis of right lower limb; E11.43 Type 2 diabetes mellitus with diabetic autonomic (poly)neuropathy; E11.69 Type 2 diabetes mellitus with other specified complication; M86.8X8 Other osteomyelitis, other site; I10 Essential (primary) hypertension; K21.9 Gastro-esophageal reflux disease without esophagitis; M19.90 Unspecified osteoarthritis, unspecified site; F17.290 Nicotine dependence, other tobacco product, uncomplicated; F41.9 Anxiety disorder, unspecified; Z86.718 Personal history of other venous thrombosis and embolism; Z79.02 Long term (current) use of antithrombotics/antiplatelets; Z79.4 Long term (current) use of insulin; X58.XXXD Exposure to other specified factors, subsequent encounter; Y83.5 Amputation of limb(s) as the cause of abnormal reaction of the patient, or of later complication, without mention of misadventure at the time of the procedure

== ENCOUNTER → 2021-06-21 | Outpatient (CLI) | payer OTHER | LOC: HYPER 08:07 | PROVIDERS: ATTEND Emergency Medicine | DX: T87.81 Dehiscence of amputation stump (principal); E11.621 Type 2 diabetes mellitus with foot ulcer; I70.245 Atherosclerosis of native arteries of left leg with ulceration of other part of foot; L97.521 Non-pressure chronic ulcer of other part of left foot limited to breakdown of skin; E11.622 Type 2 diabetes mellitus with other skin ulcer; I70.243 Atherosclerosis of native arteries of left leg with ulceration of ankle; L97.321 Non-pressure chronic ulcer of left ankle limited to breakdown of skin; L84 Corns and callosities; E11.43 Type 2 diabetes mellitus with diabetic autonomic (poly)neuropathy; K21.9 Gastro-esophageal reflux disease without esophagitis; E11.69 Type 2 diabetes mellitus with other specified complication; M86.9 Osteomyelitis, unspecified; I10 Essential (primary) hypertension; M19.90 Unspecified osteoarthritis, unspecified site; Z79.4 Long term (current) use of insulin; Z79.02 Long term (current) use of antithrombotics/antiplatelets; Z89.511 Acquired absence of right leg below knee; Z86.718 Personal history of other venous thrombosis and embolism; Z89.411 Acquired absence of right great toe; Z89.421 Acquired absence of other right toe(s); Z87.891 Personal history of nicotine dependence; Z79.899 Other long term (current) drug therapy; Y83.5 Amputation of limb(s) as the cause of abnormal reaction of the patient, or of later complication, without mention of misadventure at the time of the procedure ==

== ENCOUNTER → 2021-06-21 | Outpatient (CLI) | payer OTHER | END | disposition home or self-care (01) | LOC: SJCVCIMAG | PROVIDERS: ATTEND Nuclear Medicine Nuclear Cardiology | DX: I70.212 Atherosclerosis of native arteries of extremities with intermittent claudication, left leg (principal); M79.605 Pain in left leg; L97.929 Non-pressure chronic ulcer of unspecified part of left lower leg with unspecified severity ==

== ENCOUNTER → 2021-06-29 | Outpatient (CLI) | payer OTHER | LOC: HYPER 08:55 | PROVIDERS: ATTEND Emergency Medicine | DX: T87.81 Dehiscence of amputation stump (principal); E11.621 Type 2 diabetes mellitus with foot ulcer; I70.245 Atherosclerosis of native arteries of left leg with ulceration of other part of foot; L97.521 Non-pressure chronic ulcer of other part of left foot limited to breakdown of skin; E11.622 Type 2 diabetes mellitus with other skin ulcer; I70.243 Atherosclerosis of native arteries of left leg with ulceration of ankle; L97.321 Non-pressure chronic ulcer of left ankle limited to breakdown of skin; L84 Corns and callosities; E11.43 Type 2 diabetes mellitus with diabetic autonomic (poly)neuropathy; K21.9 Gastro-esophageal reflux disease without esophagitis; E11.69 Type 2 diabetes mellitus with other specified complication; M86.9 Osteomyelitis, unspecified; I10 Essential (primary) hypertension; M19.90 Unspecified osteoarthritis, unspecified site; Z79.4 Long term (current) use of insulin; Z79.02 Long term (current) use of antithrombotics/antiplatelets; Z89.511 Acquired absence of right leg below knee; Z86.718 Personal history of other venous thrombosis and embolism; Z89.411 Acquired absence of right great toe; Z89.421 Acquired absence of other right toe(s); Z87.891 Personal history of nicotine dependence; Y83.5 Amputation of limb(s) as the cause of abnormal reaction of the patient, or of later complication, without mention of misadventure at the time of the procedure ==

== ENCOUNTER → 2021-07-14 | Outpatient (CLI) | payer OTHER | LOC: HYPER 13:25 | PROVIDERS: ATTEND Emergency Medicine | DX: T87.81 Dehiscence of amputation stump (principal); E11.621 Type 2 diabetes mellitus with foot ulcer; I70.245 Atherosclerosis of native arteries of left leg with ulceration of other part of foot; L97.522 Non-pressure chronic ulcer of other part of left foot with fat layer exposed; L84 Corns and callosities; E11.43 Type 2 diabetes mellitus with diabetic autonomic (poly)neuropathy; K21.9 Gastro-esophageal reflux disease without esophagitis; E11.69 Type 2 diabetes mellitus with other specified complication; M86.9 Osteomyelitis, unspecified; I10 Essential (primary) hypertension; M19.90 Unspecified osteoarthritis, unspecified site; Z79.4 Long term (current) use of insulin; Z79.02 Long term (current) use of antithrombotics/antiplatelets; Z89.511 Acquired absence of right leg below knee; Z86.718 Personal history of other venous thrombosis and embolism; Z89.411 Acquired absence of right great toe; Z89.421 Acquired absence of other right toe(s); Z87.891 Personal history of nicotine dependence; Y83.5 Amputation of limb(s) as the cause of abnormal reaction of the patient, or of later complication, without mention of misadventure at the time of the procedure ==